=== PATIENT | male | born 1960 | race Caucasian/White ===

== ENCOUNTER 2016-12-01 08:40 | Day surgery (SDC) | payer OTHER ==
[~2016-12-01] VITALS: Ht 182.9 cm; Wt 88.5 kg
[~2016-12-01 08:40] MED LIST: MOBIC15 MG PO; OCUVITE SOFTGE1 EACH PO; PRILOSEC OTC20 MG PO; VITAMIN A8000 UNIT PO; VITAMIN C500 M1 PO; VITAMIN D32000 UNIT PO; VITAMIN E100 UNIT PO; XANAX1 MG PO; ZANTAC150 MG PO
--- NOTE | 2016-12-01 10:59 | NUR ---
12/01/16 [id number] Naomy Moore 1056-PATIENT ARRIVED TO PACU ON 10L MASK O2 SAT 99% PATIENT NONAROUSABLE. ORAL AIRWAY IN PLACE. ABDOMEN SOFT LAYING LEFT LATERAL.
--- NOTE | 2016-12-29 07:48 | OR ---
[facility] [address], [place] [address] Signed DATE OF PROCEDURE: 12/01/16 PREOPERATIVE DIAGNOSES Longstanding gastroesophageal reflux with treatment Colon screening. POSTOPERATIVE DIAGNOSES Hiatal hernia with poor flap valve. No sign of active inflammation. Gastric polyps. Multiple hyperplastic polyps of rectosigmoid and rectum PROCEDURE PERFORMED Esophagogastroduodenoscopy with cold morcellation, excision of gastric polyp as well as biopsies. Total colonoscopy to cecum with multiple hyperplastic polyp excision (cold technique) SURGEON: Kirit Olivier MD. ANESTHESIA: Propofol infusion (Kirit Epperson CRNA). INDICATION This 56-year-old white man is patient of Dr. Fletcher and well known to me from the past. He was seen a year ago in August of 2015 and follow-up from endoscopically demonstrated gastroesophageal reflux with esophagitis. He takes Prilosec on a daily basis to control his symptoms which is working well. A video esophagram has shown "massive reflux." His symptoms do seem to be well controlled currently. He has no "heartburn" as he had in the past. His last colonoscopy was 5 years ago at which time, he was bothered by pruritus ani. He had no colonic lesions of note at that time. He is admitted at this time to undergo upper endoscopy and colonoscopy. He understands the risks of bleeding, infection, and perforation. FINDINGS Upper endoscopy did demonstrate a poor flap valve, small hiatal hernia but no sign of active inflammation nor Lambert's esophagus. There were gastric polyps probably related to PPI use. Stomach and duodenum were otherwise normal. On colonoscopy, the prep was surprisingly good considering he truncated his low-fiber diet, anticipating the procedure today. Complete colonoscopy was undertaken to the cecum. There were numerous hyperplastic appearing polyps of the rectosigmoid and rectum. They were excised. There were no other findings of concern. Electronically Signed By: KIRIT OLIVIER MD 12/29/16 0748 PATIENT NAME: BRIGITTE MADDOX OPERATIVE REPORT DATE OF : 60 PHYSICIAN: KIRIT OLIVIER MD REPORT #: [id number] REPORT IS CONFIDENTIAL AND NOT TO BE RELEASED WITHOUT AUTHORIZATION [facility] [address], [place] [address] Signed DESCRIPTION OF PROCEDURE The patient was brought to the endoscopy suite and placed in lateral decubitus position after undergoing topical Hurricaine spray hypopharyngeal anesthesia. He was given intravenous Propofol infusional sedation based on his severe anxiety disorder. A bite block was placed. An Olympus video upper endoscope was passed in the hypopharynx. The vocal cords appeared normal. Stomach appeared essentially normal without sign of Lambert's epithelium, ulceration or stricture or varices. The scope was advanced to the stomach which was insufflated with air. Rugal folds appeared normal. There was mild inflammatory change of the antrum but no ulceration or erosion. Several gastric polyps were noted most likely hyperplastic related to PPI use. The pylorus was normal. Scope was passed through into the duodenum. The duodenum appeared normal. Biopsies were obtained to assess for celiac disease. The scope was withdrawn to the stomach and excision of a district representative polyp was undertaken. Additional biopsies were taken of the antrum for both PERCY and pathologic testing. CLOtest was negative 30 minutes post procedure. Retroflexed view confirmed a poor flap valve and small hiatal hernia. Scope was withdrawn to the distal esophagus and biopsies taken there as well as the mid esophagus. The scope was removed and plans made for colonoscopy. Digital rectal examination was performed, which was normal. An Olympus video colonoscope was passed in the rectum and manipulated throughout the colon ultimately intubating the cecum itself. The ileocecal valve and appendiceal orifice were normal. The scope was withdrawn from that point. Examination throughout showed no sign of abnormality into the rectosigmoid where small hyperplastic appearing polyps were noted. These were excised with cold morcellation technique. Retroflexed view confirmed additional small polyps to the low rectum. They were excised as well. Numerous such lesions were excised. The scope was removed and the patient taken to recovery room in good condition. CONCLUDING DIAGNOSES Gastroesophageal reflux well managed with medications at this time. Gastric polyps probably reactive to PPI use. Hiatal hernia. Hyperplastic polyps rectosigmoid and rectum. PLAN Recommend repeat colonoscopy in 3 years. Upper endoscopy as appropriate. Kirit Olivier MD Electronically Signed By: KIRIT OLIVIER MD 12/29/16 0748 PATIENT NAME: BRIGITTE MADDOX OPERATIVE REPORT DATE OF : 60 PHYSICIAN: KIRIT OLIVIER MD REPORT #: [id number] REPORT IS CONFIDENTIAL AND NOT TO BE RELEASED WITHOUT AUTHORIZATION [facility] [address], [place] [address] Signed NED/Germaine /[id number] cc: Reilly Fletcher MD Electronically Signed By: KIRIT OLIVIER MD 12/29/16 0748 PATIENT NAME: BRIGITTE MADDOX PATY OPERATIVE REPORT DATE OF : 60 PHYSICIAN: KIRIT OLIVIER MD REPORT #: [id number] REPORT IS CONFIDENTIAL AND NOT TO BE RELEASED WITHOUT AUTHORIZATION
== END 2016-12-01 11:45 | disposition home or self-care (01) ==
LOC: OPS 08:40 → DS 08:40 → OPS 09:00
PROVIDERS: Surgery
PROC: 0DB98ZX Excision of Duodenum, Via Natural or Artificial Opening Endoscopic, Diagnostic (ICD-10-PCS; 2016-12-01)
PROC: 0DB28ZX Excision of Middle Esophagus, Via Natural or Artificial Opening Endoscopic, Diagnostic (ICD-10-PCS; 2016-12-01)
PROC: 0DB38ZX Excision of Lower Esophagus, Via Natural or Artificial Opening Endoscopic, Diagnostic (ICD-10-PCS; 2016-12-01)
PROC: 0DB78ZX Excision of Stomach, Pylorus, Via Natural or Artificial Opening Endoscopic, Diagnostic (ICD-10-PCS; 2016-12-01)
PROC: 0DB68ZX Excision of Stomach, Via Natural or Artificial Opening Endoscopic, Diagnostic (ICD-10-PCS; 2016-12-01)
PROC: 0DBP8ZX Excision of Rectum, Via Natural or Artificial Opening Endoscopic, Diagnostic (ICD-10-PCS; principal; 2016-12-01 09:00)
PROC: 0DBN8ZX Excision of Sigmoid Colon, Via Natural or Artificial Opening Endoscopic, Diagnostic (ICD-10-PCS; 2016-12-01 09:00)
DX: Z12.11 Encounter for screening for malignant neoplasm of colon (principal); K63.5 Polyp of colon; K62.1 Rectal polyp; K20.0 Eosinophilic esophagitis; K29.80 Duodenitis without bleeding; K29.50 Unspecified chronic gastritis without bleeding; K44.9 Diaphragmatic hernia without obstruction or gangrene; F41.0 Panic disorder [episodic paroxysmal anxiety]; G47.30 Sleep apnea, unspecified; Z99.81 Dependence on supplemental oxygen
CPT/HCPCS: 00740; J2250; J2704; J7120

== ENCOUNTER 2018-05-01 10:45 | Day surgery (SDC) | payer OTHER ==
[~2018-05-01] VITALS: Ht 180.3 cm; Wt 90.7 kg
--- NOTE | 2018-05-01 12:40 | NUR ---
05/01/18 1240 Naomy Moore 1231-PATIENT ARRIVED TO PACU ON 2L NC AWAKE DROWSY DENIES PAIN OR NAUSEA. BANDAID CDI TO BACK. RR EVEN.
== END 2018-05-01 13:06 | disposition home or self-care (01) ==
LOC: DS 10:45 → OPS 10:45 → DS 12:00 → OPS 12:00 → DS 05-08 12:00
PROVIDERS: Specialist
PROC: 079T3ZX Drainage of Bone Marrow, Percutaneous Approach, Diagnostic (ICD-10-PCS; 2018-05-01)
PROC: 07DR3ZX Extraction of Iliac Bone Marrow, Percutaneous Approach, Diagnostic (ICD-10-PCS; principal; 2018-05-01 12:00)
DX: D61.818 Other pancytopenia (principal); D72.819 Decreased white blood cell count, unspecified; D75.89 Other specified diseases of blood and blood-forming organs; K21.9 Gastro-esophageal reflux disease without esophagitis; Z79.899 Other long term (current) drug therapy
CPT/HCPCS: 82607; 82746; 83090; 83921; 85025; 85045; 99152; 99153; J2250; J3010

== ENCOUNTER 2020-03-12 06:50 | Day surgery (SDC) | payer OTHER ==
[~2020-03-12] VITALS: Ht 180.3 cm; Wt 88.6 kg
[~2020-03-12 06:50] MED LIST changes: +TURMERIC500 M2 PO
--- NOTE | 2020-03-12 08:40 | NUR ---
03/12/20 0840 Noa Baum 0835 PATIENT ARRIVES TO PACU AWAKE BUT DROWSY. RESP EVEN AND UNLABORED, NC AT 4 LITERS. PATIENT DENIES PAIN OR NAUSEA.
--- NOTE | 2020-03-13 11:27 | OR ---
[facility] [address] [place], [place] [address] Signed DATE OF OPERATION: 03/12/2020 SURGEON: Kirit Olivier MD PREOPERATIVE DIAGNOSIS: Clinical gastroesophageal reflux with PPI medication treatment. POSTOPERATIVE DIAGNOSES: 1. Mild distal esophagitis and hiatal hernia. 2. Gastric polyps, likely related to PPI use. PROCEDURE: Esophagogastroduodenoscopy with biopsy. ANESTHESIA: Intravenous sedation, propofol infusion; Lucian Calderón CRNA. INDICATIONS: This 59-year-old white man is a patient of Dr. Carmen Conway and has had reflux symptoms clinically treated with PPI medication with good effect. He has been on omeprazole, currently is on omeprazole and Nexium. He inquires as to whether Pepcid rather than a PPI medication may be beneficial to him. The patient is not currently having dysphagia. Consideration has been made for a trial of H2 blockers in lieu of PPI medication. He currently is taking Nexium 40 mg daily and has good symptom control. He is admitted to undergo upper endoscopy to assess for Lambert's epithelium, stricture neoplasm or other findings, which may guide further therapy. FINDINGS: There is mild distal esophagitis, but no stricture. He has a moderate to large size hiatal hernia. The stomach was essentially normal except for gastric polyps likely related to PPI use. The duodenum was normal. CLOtest was negative 20 minutes post procedure. DESCRIPTION OF PROCEDURE: The patient was brought to the endoscopy suite and placed in lateral decubitus position. He was given lidocaine topical anesthetic and intravenous sedation by the acute specialist with propofol infusional technique. A bite block was placed. An Olympus video upper endoscope was passed in the hypopharynx, the vocal cords and arytenoid processes appeared normal. Scope was advanced to the esophagus throughout its length, it showed no evidence of Lambert's epithelium, though the distal esophagus did have mild chronic Electronically Signed By: KIRIT OLIVIER MD 03/13/20 1127 PATIENT NAME: BRIGITTE MADDOX OPERATIVE REPORT DATE OF : 60 REPORT #: [id number] PHYSICIAN: KIRIT OLIVIER MD PCP: CARMEN CONWAY MD REPORT IS CONFIDENTIAL AND NOT TO BE RELEASED WITHOUT AUTHORIZATION [facility] [address] [place], [place] [address] Signed inflammation, but no stricture. The scope was passed to the stomach, which was insufflated with air. Rugal folds were normal. There were numerous polyps of the antrum and body of the stomach likely related to PPI use. The pylorus was normal, scope was passed through into the duodenum, which was normal. Biopsies were taken of the duodenum to assess for celiac disease. The scope was withdrawn and biopsies taken of the antrum for both PERCY and pathologic testing as well as a floor representative polyp excised. Withdrawal of scope in the retroflexed position showed a moderate-sized hiatal hernia. The scope was straightened withdrawn and biopsy was then taken of the distal esophageal mucosa. Further withdrawal of scope allowed for biopsy of the midesophagus to assess for eosinophilic esophagitis. Further withdrawal of scope showed no other abnormalities. The scope was removed. The patient was taken to the recovery room in good condition. CONCLUDING DIAGNOSIS: Hiatal hernia with mild chronic esophagitis, clinically well controlled with PPI medication. He would be a candidate for antireflux operation as an alternative to ongoing medical management. PLAN: Continued use of Nexium 40 mg daily would be advised; however, if he wishes to attempt at Pepcid 20 mg p.o. b.i.d. to avoid a PPI medication and the erratic risks that is acceptable as well. He will return to see us in approximately 4-6 weeks, sooner if further problems. MD NED Sen/ROBERTL /[id number] cc: Carmen Conway MD Copies: CARMEN CONWAY DMD ~ Electronically Signed By: KIRIT OLIVIER MD 03/13/20 1127 PATIENT NAME: BRIGITTE MADDOX OPERATIVE REPORT DATE OF : 60 REPORT #: [id number] PHYSICIAN: KIRIT OLIVIER MD PCP: CARMEN CONWAY MD REPORT IS CONFIDENTIAL AND NOT TO BE RELEASED WITHOUT AUTHORIZATION
--- NOTE | 2020-03-16 14:07 | PATH ---
[facility] [address] [facility] [place], [place] [address] Signed SPECIMEN(S): A DUODENAL BIOPSY SPECIMEN(S): B POLYP BIOPSY SPECIMEN(S): C ANTRUM/PYLORUS BIOPSY SPECIMEN(S): D DISTAL ESOPHAGEAL BIOPSY SPECIMEN(S): E MID ESOPHAGEAL BIOPSY SPECIMEN SOURCE: A. DUODENAL BIOPSY B. POLYP BIOPSY C. ANTRUM/PYLORUS BIOPSY D. DISTAL ESOPHAGEAL BIOPSY E. MID ESOPHAGEAL BIOPSY CLINICAL HISTORY: GERD, chronic esophagitis. Post-op: Hiatal hernia, mild esophagitis, gastric polyps. MICROSCOPIC DESCRIPTION: Histologic sections of all submitted blocks are examined by light microscopy. These findings, together with the gross examination, support the pathologic diagnosis. FINAL PATHOLOGIC DIAGNOSIS: A. Duodenal biopsy: - Benign duodenal mucosa, negative for specific diagnostic abnormality. B. Polyp, biopsy: - Benign fundic gland polyp (one fragment). C. Antrum/pylorus, biopsy: - Benign gastric type mucosa with focal slight chronic inflammation. - Negative for evidence of Helicobacter organisms on routine HE stained sections. D. Distal esophageal biopsy: - Squamocolumnar junction with reactive features, negative for specialized intestinal metaplasia or dysplasia. E. Mid esophageal biopsy: - Benign esophageal mucosa, negative for significantly increased epithelial eosinophils. - Fragment of benign gastric type mucosa with focal sight chronic inflammation. (see comment) COMMENT: Regarding specimen E: The significance of the benign gastric mucosal fragment PATIENT NAME: KNOCK UP ASSEMBLERBRIGITTELIGIA NEWMAN PATHOLOGY DATE OF : 60 REPORT #: [id number] PHYSICIAN: [facility] PCP: CARMEN CONWAY MD REPORT IS CONFIDENTIAL AND NOT TO BE RELEASED WITHOUT AUTHORIZATION [facility] [address] [place], [place] [address] Signed in the mid esophageal biopsy is uncertain as it is possible that this is a contaminant from the antral biopsy or distal esophagus. Clinical correlation is requested. JVR:[id number] GROSS DESCRIPTION: Five specimens are received in five containers, labeled "DB." A. The specimen, labeled "DB, 1," and designated on the requisition "duodenum biopsy," is received in formalin and consists of two smith soft tissue fragments that measure 0.3 and 0.5 cm in greatest dimension. The specimen is entirely submitted in cassette (A1). B. The specimen, labeled "DB, 2," and designated on the requisition "polyp biopsy," is received in formalin and consists of one smith soft tissue fragment that measures 0.4 cm in greatest dimension. The specimen is entirely submitted in cassette (B1). C. The specimen, labeled "DB, 3," and designated on the requisition "antrum biopsy," is received in formalin and consists of two smith soft tissue fragments that measure 0.5 and 0.6 cm in greatest dimension. The specimen is entirely submitted in cassette (C1). D. The specimen, labeled "DB, 4," and designated on the requisition "esophagus biopsy, distal," is received in formalin and consists of six smith-white soft tissue fragments that measure 0.1 up to 0.7 cm in greatest dimension. The specimen is entirely submitted in cassette (D1). E. The specimen, labeled "DB, 5," and designated on the requisition "proximal esophagus biopsy," is received in formalin and consists of three smith-white soft tissue fragments that measure 0.2 to 0.6 cm in greatest dimension. The specimen is entirely submitted in cassette (E1). AI (under the direct supervision of a pathologist) The Gross Description was prepared using a voice recognition system. The report was reviewed for accuracy; however, sound-alike word errors, addition and/or deletions may occur. If there is any question about this report, please contact Client Services. PERFORMING LABORATORY: The technical component was performed by [facility], [address] [place] [id number] ([employer] Supervisor: Lor Li MD; CLIA# [id number]). Professional interpretation was performed by [facility] [address]. Diagnostician: Jeff Sotelo MD PATIENT NAME: BRIGITTE MADDOX PATHOLOGY DATE OF : 60 REPORT #: [id number] PHYSICIAN: EVERTON MARTÍNEZ PCP: CARMEN CONWAY MD REPORT IS CONFIDENTIAL AND NOT TO BE RELEASED WITHOUT AUTHORIZATION [facility] [address] [place] [address] Signed Pathologist Electronically Signed 03/16/2020 Copies: ~ PATIENT NAME: BRIGITTE MADDOX PATHOLOGY DATE OF : 60 REPORT #: [id number] PHYSICIAN: [facility] PCP: CARMEN CONWAY MD REPORT IS CONFIDENTIAL AND NOT TO BE RELEASED WITHOUT AUTHORIZATION
== END 2020-03-12 09:05 | disposition home or self-care (01) ==
LOC: DS 06:50 → OPS 06:50 → DS 08:30 → OPS 08:30
PROVIDERS: ATTEND Surgery
PROC: 0DB78ZX Excision of Stomach, Pylorus, Via Natural or Artificial Opening Endoscopic, Diagnostic (ICD-10-PCS; 2020-03-12)
PROC: 0DB98ZX Excision of Duodenum, Via Natural or Artificial Opening Endoscopic, Diagnostic (ICD-10-PCS; principal; 2020-03-12 08:30)
DX: K20.90 Esophagitis, unspecified without bleeding (principal); K21.9 Gastro-esophageal reflux disease without esophagitis; K31.7 Polyp of stomach and duodenum; K44.9 Diaphragmatic hernia without obstruction or gangrene; F41.9 Anxiety disorder, unspecified; K22.4 Dyskinesia of esophagus; G47.30 Sleep apnea, unspecified
CPT/HCPCS: J2001; J2704; J3010

== ENCOUNTER 2022-10-05 10:58 | Day surgery (SDC) | payer OTHER | END 2022-10-05 13:11 | disposition home or self-care (01) | LOC: DS 10:58 | PROC: 0DJD8ZZ Inspection of Lower Intestinal Tract, Via Natural or Artificial Opening Endoscopic (ICD-10-PCS; principal; 2022-10-05) | DX: Z12.11 Encounter for screening for malignant neoplasm of colon (principal); K57.30 Diverticulosis of large intestine without perforation or abscess without bleeding; Z86.010 Personal history of colon polyps; K21.9 Gastro-esophageal reflux disease without esophagitis; L57.0 Actinic keratosis; F41.1 Generalized anxiety disorder; Z79.899 Other long term (current) drug therapy ==